=== PATIENT | female | born 1990 | race African-American/Black ===

== ENCOUNTER 2018-06-22 03:02 | Emergency (ER) | payer MEDICAID, OTHER ==
[~2018-06-22] VITALS: Ht 160 cm; Wt 45.0 kg
[2018-06-22] MEDS ORDERED: BACITRACIN ZINC OINT UDPKT TOP ONE (07:15)
[2018-06-22] MEDS ORDERED: CEFAZOLIN 1000MG PREMIX 50 ML IV ONE (07:15)
[2018-06-22] MEDS ORDERED: LIDOCAINE HCL 1% 20ML VIAL (Pyxis) INJ INFIL ONE (07:45)
[2018-06-22] MEDS ORDERED: HYDROCODONE/ACETAMINOPHEN 5/325MG TABLET PO ONE (08:00)
[2018-06-22] MEDS ORDERED: ONDANSETRON HCL 4MG/2ML INJ IV ONE (08:30)
[2018-06-22 11:22] VITALS: BP 100/64
== END 2018-06-22 11:52 | disposition home or self-care (01) ==
LOC: ER 03:31
DX: S61.412A Laceration without foreign body of left hand, initial encounter (principal); W45.8XXA Other foreign body or object entering through skin, initial encounter; Y93.89 Activity, other specified; Y92.89 Other specified places as the place of occurrence of the external cause; Y99.8 Other external cause status; Z87.891 Personal history of nicotine dependence
CPT/HCPCS: 12002; 73130; 81025; 96365; 96375; 99283; J0690; J2405; J3490; Z7610